=== PATIENT | female | born 1990 | race Caucasian/White ===

== ENCOUNTER 2018-09-21 23:48 | Inpatient (IN) | payer OTHER ==
--- NOTE | 2018-09-21 14:10 | PDOC.LDHP ---
Labor and Delivery H&P Chief complaint: scheduled induction HPI: Pt is a 27yo 37 weeks on 09/22/18 scheduled for IOL for GHTN that was dx @ 34 weeks. Current gestational age (weeks): 37 Due date: 10/13/18 Grav: 2 Para: 1 OB History Details: GHTN diagnosed @ 34 weeks Current complications: gestational hypertension Abnormal US findings: No Past Medical History: depression Current medications: pre-mikaela vitamins, other (sertraline) Previous surgical history: none Allergies/Adverse Reactions: Allergies Allergy/AdvReac Type Severity Reaction Status Date / Time No Known Allergies Allergy Verified 12/20/15 11:25 Social history: none - OB Labs Blood type: A RH: positive Antibody Screen: negative HIV: negative RPR: negative HEPSAg: negative 1 hour GCT: positive 3 hour GTT: 3hr WNL GBS: negative Rubella: immune - Assessment L&D Assessment: medically indicated induction - Plan Plan: admit to L&D, labor augmentation if indicated, informed consent obtained, anesthesia consult for pain management -: A/P: 27yo @ 37.0 on 09/22 scheduled for IOL for GHTN at term, dx and monitored since 34 weeks GA. Plan for cyotec w likely pitocin IOL.
[~2018-09-21 23:48] MED LIST: Bupivacaine 0.25% HCL 30 ML VIAL ONE; Bupivacaine HCl 0.5%/Epinephrine 1:200,000/PF 30 ml Vial ONE
[2018-09-22] MEDS ORDERED: HYDROcodone/Acetaminophen 5/325 mg Tablet PO PRN ×4 (00:30→18:19)
[2018-09-22] MEDS ORDERED: Ondansetron PF 4 MG/2 ML Vial IVP PRN ×2 (00:30→15:22)
[2018-09-22] MEDS ORDERED: Misoprostol 100 MCG TAB VAG SCH (00:30)
[2018-09-22] MEDS ORDERED: Lidocaine 1% (PF) 30 ML VIAL SC PRN (00:30)
[2018-09-22] MEDS ORDERED: NS / Oxytocin 40 units/1000ml 1,000 ML IV PRN (00:30)
[2018-09-22] MEDS ORDERED: NS w/ Oxytocin 10 units 500 ML IV SCH ×2 (00:30)
[2018-09-22] MEDS ORDERED: Promethazine HCl 25 MG/ML VIAL IM PRN ×2 (00:30→15:22)
[2018-09-22] MEDS ORDERED: Butorphanol Tartrate 1 MG/ML VIAL SLOW IVP PRN (00:30)
[2018-09-22] MEDS ORDERED: Ibuprofen 800 MG TAB PO PRN (00:30)
[2018-09-22 00:40] VITALS: BMI 35.2
[2018-09-22] MEDS: Lactated Ringer's 1,000 ML IV SCH ×3 (01:48→10:21)
[2018-09-22 02:00] LABS: Hemoglobin 11.7 g/dL (12.0-16.0); Mean Corpuscular HGB CONC 32.3 g/dL (32.0-36.0); Mean Corpuscular Volume 86.7 fL (78.0-98.0); Mean Platelet Volume 8.7 fL (7.4-10.4); Platelet Count 193 thou/uL (130-400); RBC Distribution Width 13.6 % (11.5-14.5); Red Blood Cell (RBC) Count 4.18 mill/uL (4.20-5.40); White Blood Cell (WBC) Count 10.9 thou/uL (4.8-10.8)
[2018-09-22 02:18] LABS: ALT (SGPT) 16 U/L (8-55); AST (SGOT) 27 U/L (5-34); Albumin 3.2 g/dL (3.5-5.0); Alkaline Phosphatase 152 U/L (40-150); Anion Gap 15 mmol/L (10-20); BUN (Urea Nitrogen) 9 mg/dL (7.0-18.7); Bilirubin, Total 0.5 mg/dL (0.2-1.2); Calc. Creatinine Clearance 196 mL/min (70-130); Calcium 8.9 mg/dL (7.8-10.44); Carbon Dioxide 18 mmol/L (22-29); Chloride 106 mmol/L (98-107); Estimated GFR-MDRD Greater than 90; Glucose 77 mg/dL (70-105); Potassium 3.7 mmol/L (3.5-5.1); Protein, Total 6.2 g/dL (6.0-8.3); Sodium 135 mmol/L (136-145)
[2018-09-22 02:37] LABS: HBSAg Index 0.27 S/CO (0-0.99); Hep B Surf Ag Non-Reactive S/CO (NonReactive)
[2018-09-22 04:53] LABS: Syphilis Antibody Nonreactive (Nonreactive); Syphilis Antibody Index 0.04 S/CO (<1.00 Non-Reactive)
[2018-09-22] MEDS ORDERED: Fentanyl 4 mcg/Bup 0.1% Cadd 100 ML ONE (08:08)
--- NOTE | 2018-09-22 08:12 | PDOC.LDPN ---
Labor & Delivery Progress Note - Subjective Subjective: comfortable - Objective Vital signs reviewed and normal: yes General: resting Dilation: 1 Effacement: 25% Station: -2 FHT: category 1 AROM: clear fluid - Assessment (1) 37 weeks gestation of Code(s): Z3A.37 - 37 WEEKS GESTATION OF Current Visit: Yes Status : Acute (2) Gestational hypertension Code(s): O13.9 - GESTATIONAL HTN W/O SIGNIFICANT PROTEINURIA, UNSP TRIMESTER Current Visit: Yes Status: Acute Plan: continue plan of care -: A/P: Outer os 4cm, inner OS 1.5cm, AROM w clear fluid. FHT reassuring, BP WNL.
[2018-09-22] MEDS ORDERED: Lidocaine 1.5%/Epinephrine 1:200,000 5 ML AMPUL IJ ONE ×2 (10:01→10:08)
[2018-09-22] MEDS ORDERED: Eucerin (Mineral Oil/Petrolatum,White) 30 gm Jar TOP PRN (15:22)
[2018-09-22] MEDS ORDERED: Acetaminophen 325 MG TAB PO PRN (15:22)
[2018-09-22] MEDS ORDERED: ePHEDrine/0.9% NaCl/PF SYRINGE 50 mg/10 ml SLOW IVP PRN (15:22)
[2018-09-22] MEDS ORDERED: diphenhydrAMINE 50 MG/ML VIAL IVP PRN (15:22)
[2018-09-22] MEDS ORDERED: Naloxone HCl 0.4 mg/ml Vial IVP PRN ×2 (15:22)
[2018-09-22] MEDS ORDERED: Lactated Ringer's 500 ML IV PRN (15:22)
[2018-09-22] MEDS ORDERED: Fentanyl 4 mcg/Bupivacaine 0.1% Cassette 100 ML EPIDURAL SCH (15:30)
[2018-09-22] MEDS ORDERED: Communication Order-Pharmacy FS SCH (15:30)
--- NOTE | 2018-09-22 15:34 | PDOC.OPDEL ---
OB Operative/Delivery Note Delivery Dr/Surgeon: Aguilar Pre-Delivery Diagnosis: medically indicated induction (GHTN at term) Procedure/Post Delivery Dx: spontaneous vaginal delivery Weeks gestation: 37 - Findings A Sex: female - 1 min: 8 - 5 min: 9 - Additional Findings/Plan Placenta delivered: spontaneous Repaired Obstetrical Laceration: none Estimated blood loss: 150ml Post delivery plan: routine recovery
[2018-09-22] MEDS ORDERED: NS / Oxytocin 40 units/1000ml 1,000 ML IV SCH (18:19)
[2018-09-22] MEDS ORDERED: Preparation H Ointment 28 GM TUBE PR PRN (18:19)
[2018-09-22] MEDS ORDERED: Milk Of Magnesia 30 ML UDCUP PO PRN (18:19)
[2018-09-22] MEDS ORDERED: Lanolin Ointment 7 GM TUBE TOP PRN (18:19)
[2018-09-22] MEDS ORDERED: Benzocaine/Menthol 20-0.5% 60 ML CAN TOP PRN (18:19)
[2018-09-22] MEDS ORDERED: diphenhydrAMINE 25 MG CAP PO PRN (18:19)
[2018-09-22] MEDS ORDERED: Bisacodyl 10 MG SUPP PR PRN (18:19)
[2018-09-22] MEDS: Docusate Calcium (SURFAK) 240 MG CAP PO SCH (21:44)
[2018-09-22] MEDS: Ibuprofen 800 MG TAB PO SCH (21:44)
[2018-09-23] MEDS: Ibuprofen 800 MG TAB PO SCH ×2 (05:53→14:44)
[2018-09-23 06:51] LABS: Hemoglobin 11.6 g/dL (12.0-16.0); Mean Corpuscular HGB CONC 31.7 g/dL (32.0-36.0); Mean Corpuscular Hemoglobin 27.9 pg (27.0-31.0); Mean Platelet Volume 8.7 fL (7.4-10.4); Platelet Count 188 thou/uL (130-400); RBC Distribution Width 13.7 % (11.5-14.5); Red Blood Cell (RBC) Count 4.14 mill/uL (4.20-5.40); White Blood Cell (WBC) Count 13.6 thou/uL (4.8-10.8)
[2018-09-23] MEDS ORDERED: Ferrous Sulfate 325 MG TAB PO SCH (08:00)
[2018-09-23] MEDS ORDERED: Adacel (T-DAP) 0.5 ML SYRINGE IM ONE (09:00)
--- NOTE | 2018-09-23 09:11 | PDOC.PP ---
Post Progress Note Post Day #: 1 Subjective: doing well, no PIH sx, mild range BP noted overnight, min lochia PO intake tolerated: yes Flatus: yes Ambulation: yes Vital Signs (12 hours) Temp Pulse Resp BP Pulse Ox 09/23/18 08:25 98.2 F 81 20 121/64 97 09/23/18 04:03 98.2 F 95 18 118/67 09/22/18 23:50 99.1 F 85 18 125/59 L Weight Weight 205 lb - Physical Examination General: NAD Respiratory: non-labored breathing Abdominal: no distention Fundus firm & at: below umb Skin: no rash Psychiatric: A&Ox3, normal affect Result Diagrams: 09/23/18 06:38 09/22/18 01:15 Additional Labs: Post Labs Blood Type A POSITIVE 09/22/18 01:15 Hep Bs Antigen Non-Reactive S/CO (NonReactive) 09/22/18 01:15 (1) 37 weeks gestation of Code(s): Z3A.37 - 37 WEEKS GESTATION OF Status: Acute (2) Gestational hypertension Code(s): O13.9 - GESTATIONAL HTN W/O SIGNIFICANT PROTEINURIA, UNSP TRIMESTER Status: Acute - Assessment/Plan PPD1 doing well, BP WNL this AM. Possible DC today.
[2018-09-23] MEDS: Docusate Calcium (SURFAK) 240 MG CAP PO SCH (09:53)
[2018-09-23 17:32] VITALS: BP 139/85; TEMP 98.1
== END 2018-09-23 18:17 | disposition home or self-care (01) | DRG 807 ==
LOC: L&D 23:48 → 3SW 09-22 18:24
PROVIDERS: ADMIT Obstetrics & Gynecology; ATTEND Obstetrics & Gynecology
PROC: 10E0XZZ Delivery of Products of Conception, External Approach (ICD-10-PCS; principal; 2018-09-22)
PROC: 10907ZC Drainage of Amniotic Fluid, Therapeutic from Products of Conception, Via Natural or Artificial Opening (ICD-10-PCS; 2018-09-22)
DX: O13.4 Gestational [pregnancy-induced] hypertension without significant proteinuria, complicating childbirth (principal); Z37.0 Single live birth; Z3A.37 37 weeks gestation of pregnancy
CPT/HCPCS: 36415; 51702; 80053; 85027; 86780; 86850; 86900; 86901; 87340; J0670; J3490; S0020